=== PATIENT | female | born 1960 | race Caucasian/White ===

== ENCOUNTER 2024-02-16 11:55 | Inpatient (IN) | payer SELFPAY ==
[2024-02-16] MEDS ORDERED: methylPREDNISolone Sod Succ/PF 125 MG/2 ML VIAL ONE (12:15)
[2024-02-16] MEDS ORDERED: Magnesium 2 GM/50 ML BAG (IN WATER) ONE (12:15)
[2024-02-16] MEDS ORDERED: Albuterol 2.5 MG (0.5 mL) NEB ONE (12:28)
[2024-02-16] MEDS ORDERED: Ipratropium Bromide 2.5 ml Neb ONE (12:28)
[2024-02-16 12:32] LABS: #Basophils 0.03 10x3/uL (0.0-0.2); %Basophils 0.4 % (0.0-1.0); %Eosinophils 2.6 % (0.0-10.0); %Lymphocytes 14.2 % (21.0-51.0); %Monocytes 7.4 % (0.0-10.0); %Neutrophils 75.2 % (42.0-75.0); Hematocrit 44.1 % (36.0-47.0); Hemoglobin 14.5 g/dL (12.0-16.0); Mean Corpuscular HGB CONC 32.9 g/dL (32.0-36.0); Mean Corpuscular Hemoglobin 30.1 pg (27.0-31.0); Mean Corpuscular Volume 91.7 fL (78.0-98.0); Mean Platelet Volume 10.5 fL (7.4-10.4); Platelet Count 207 10x3/uL (130-400); RBC Distribution Width 12.9 % (11.5-14.5); Red Blood Cell (RBC) Count 4.81 mill/uL (4.20-5.40)
[2024-02-16 12:45] LABS: ALT (SGPT) 37 U/L (8-55); AST (SGOT) 26 U/L (5-34); Albumin 3.9 g/dL (3.4-4.8); Alkaline Phosphatase 114 U/L (40-110); Anion Gap 13 mmol/L (10-20); BUN (Urea Nitrogen) 9 mg/dL (9.8-20.1); Bilirubin, Total 0.6 mg/dL (0.2-1.2); Calc. Creatinine Clearance 0 mL/min (70-130); Calcium 9.8 mg/dL (7.8-10.44); Carbon Dioxide 25 mmol/L (23-31); Chloride 106 mmol/L (98-107); Estimated GFR 92; Globulin 3.9 g/dL (2.4-3.5); Glucose 105 mg/dL (80-115); Magnesium 2.2 mg/dL (1.6-2.6); Potassium 3.9 mmol/L (3.5-5.1); Protein, Total 7.8 g/dL (5.8-8.1); Sodium 140 mmol/L (136-145)
[2024-02-16 12:49] LABS: Troponin I 0.039 ng/mL (< 0.028)
[2024-02-16] MEDS ORDERED: Sodium Chloride 0.9% 100 ML ONE (13:22)
[2024-02-16] MEDS ORDERED: cefTRIAXone (ROCEPHIN) 1 GM VIAL ONE (13:22)
[2024-02-16] MEDS ORDERED: Azithromycin 250 MG TAB ONE (13:22)
[2024-02-16 16:00] VITALS: BMI 25.7
[2024-02-16 16:48] LABS: Troponin I 0.037 ng/mL (< 0.028)
[2024-02-16] MEDS: Aspirin 81 mg Enteric Coated Tablet PO SCH (17:37)
[2024-02-16] MEDS: Ipratropium/Albuterol 3 ML NEB NEB SCH (18:49)
[2024-02-16] MEDS: methylPREDNISolone Sod Succ 40 MG VIAL IVP SCH (19:30)
[2024-02-17] MEDS: Acetaminophen 325 MG TAB PO PRN (07:08)
[2024-02-17] MEDS: Pantoprazole DR 40 MG TAB PO SCH (08:22)
[2024-02-17] MEDS: Aspirin 81 mg Enteric Coated Tablet PO SCH (08:22)
[2024-02-17] MEDS: Enoxaparin 40 MG (0.4 mL) SYRINGE SC SCH (08:23)
[2024-02-17] MEDS: cefTRIAXone\\ROCEPHIN 1 GM in Sodium Chloride 0.9% 100 ML IVPB SCH (12:56)
[2024-02-17] MEDS: Azithromycin 500 MG in Sodium Chloride 0.9% 250 ML 250 ML IVPB SCH (12:59)
[2024-02-19] MEDS: hydrALAZINE 20 MG/ML VIAL SLOW IVP PRN (08:39)
[2024-02-19] MEDS: Amlodipine 10 MG TAB PO SCH (10:40)
[2024-02-20] MEDS: Amlodipine 10 MG TAB PO SCH (08:37)
[2024-02-20 11:48] VITALS: BP 167/83; TEMP 97.7
== END 2024-02-20 12:30 | disposition home or self-care (01) | DRG 189 ==
LOC: ERS 11:55 → T4-B 14:22 → OBSVTOIN 02-17 15:04
PROVIDERS: ADMIT Hospitalist; ATTEND Internal Medicine
DX: J96.01 Acute respiratory failure with hypoxia (principal); J44.1 Chronic obstructive pulmonary disease with (acute) exacerbation; I24.89 Other forms of acute ischemic heart disease; F17.210 Nicotine dependence, cigarettes, uncomplicated; I10 Essential (primary) hypertension; Z71.6 Tobacco abuse counseling
CPT/HCPCS: 36415; 36416; 71045; 80053; 83605; 83735; 83880; 84484; 85025; 87428; 93005; 94640; 94644; 96365; 96367; 96375; 96376; G0378; J0360; J0456; J0696; J2919; J3475; J7050; J7611; J7620; J7644